=== PATIENT | male | born 1940 | race Caucasian/White ===

== ENCOUNTER 2022-05-02 12:27 | Inpatient (IN) | payer MEDICARE ==
[~2022-05-02] VITALS: Ht 167.6 cm; Wt 80.8 kg
[2022-05-02 15:17] LABS: BASOPHILS % (AUTO) 0.2 % (0.0-5.0); EOSINOPHILS % (AUTO) 0.2 % (0.0-8.0); HEMATOCRIT 39.7 % (42-54); LYMPHOCYTES % (AUTO) 12.3 % (21.0-51.0); MEAN CORPUSCULAR HEMOGLOBIN 28.9 pg (27.0-33.0); MEAN CORPUSCULAR HGB CONC 31.5 g/dL (32.0-36.0); MEAN CORPUSCULAR VOLUME 91.9 fL (79-99); MONOCYTES % (AUTO) 9.9 % (3.0-13.0); NEUTROPHILS % (AUTO) 77.1 % (40.0-77.0); PLATELET COUNT (AUTO) 96 K/uL (130-400); RED BLOOD CELL COUNT(AUTO) 4.32 MIL/uL (4.50-6.20); RED CELL DISTRIBUTION WIDTH 14.9 % (11.0-15.5)
[2022-05-02 15:31] LABS: CREATININE 2.6 mg/dL (0.5-1.5); POTASSIUM 4.2 mmol/L (3.5-5.1)
[2022-05-02 15:36] LABS: ALBUMIN 3.4 g/dL (3.5-5.0); TOTAL PROTEIN, SERUM 7.9 g/dL (6.0-8.3)
[2022-05-02] MEDS ORDERED: 0.9% NACL 500ML IV.SOLN 500 ML IV ONE (16:30)
[2022-05-02] MEDS ORDERED: 0.9%NACL 50ML 50 ML IV ONE (16:30)
[2022-05-02] MEDS ORDERED: ACETAMINOPHEN 500 MG TABLET PO ONE (16:30)
[2022-05-02] MEDS ORDERED: AZITHROMYCIN 250 MG TABLET PO ONE (16:30)
[2022-05-02] MEDS ORDERED: CEFTRIAXONE 1G VIAL IVP ONE (16:30)
[2022-05-02] MEDS ORDERED: GUAIFENESIN-DM 200/20 MG 10 ML PO ONE (16:30)
[2022-05-02] MEDS ORDERED: POTASSIUM CHLORIDE 10% ELIXIR 20 MEQ/15 ML UDCUP PO PRN (17:30)
[2022-05-02] MEDS ORDERED: DIPHENHYDRAMINE HCL 25 MG CAPSULE PO PRN (17:30)
[2022-05-02] MEDS ORDERED: DiphenhydrAMINE HCL 50 MG/ML VIAL IV PRN (17:30)
[2022-05-02] MEDS ORDERED: GUAIFENESIN-DM 200/20 MG 10 ML PO PRN (17:30)
[2022-05-02] MEDS ORDERED: ACETAMINOPHEN 325 MG TAB PO PRN ×2 (17:30)
[2022-05-02] MEDS ORDERED: DEXTROSE 50%-WATER 50 ML DISP.SYRIN IV PRN (17:30)
[2022-05-02] MEDS ORDERED: MAGNESIUM 2GM PREMIX 50ML 50 ML IV PRN (17:30)
[2022-05-02] MEDS ORDERED: POTASSIUM CHLORIDE 20MEQ/100ML 100 ML IV PRN (17:30)
[2022-05-02] MEDS ORDERED: LIDOCAINE HCL-MPF 1% 2ML VIAL IV PRN (17:30)
[2022-05-02] MEDS ORDERED: LACTULOSE 20 GM/30 ML UDCUP PO PRN (17:30)
[2022-05-02] MEDS ORDERED: NITROGLYCERIN 0.4 MG SL TAB SL PRN (17:30)
[2022-05-02] MEDS ORDERED: MAG/ALUM/SIMETH 30 ML UDCUP PO PRN (17:30)
[2022-05-02] MEDS ORDERED: ONDANSETRON 4MG INJ IV PRN (17:30)
[2022-05-02] MEDS ORDERED: GLUCAGON 1MG KIT 1 MG ML IM PRN (17:30)
[2022-05-02] MEDS ORDERED: KCL 20 MEQ ERTAB PO PRN (17:30)
[2022-05-02] MEDS: DOXYCYCLINE 100MG+NS 250ML 250 ML IV SCH (17:57)
[2022-05-02] MEDS: 0.9%NACL 1000ML 1,000 ML IV SCH ×2 (17:57→20:52)
[2022-05-02] MEDS: AZITHROMYCIN 500MG+NS 250ML 250 ML IV SCH (20:51)
[2022-05-02] MEDS: BENZONATATE 100 MG CAPSULE PO SCH (20:52)
[2022-05-02] MEDS: FAMOTIDINE 20MG TAB PO SCH (20:52)
[2022-05-02] MEDS: ATORVASTATIN 40 MG TABLET PO SCH (20:52)
[2022-05-02] MEDS ORDERED: FAMOTIDINE 20MG VIAL IV PRN (21:00)
[2022-05-02] MEDS ORDERED: HEPARIN 5,000 UNIT VIAL SQ SCH (21:00)
[2022-05-02] MEDS ORDERED: CLOP75TA32 PO (21:13)
[2022-05-02] MEDS ORDERED: CALC-877 PO (21:13)
[2022-05-02] MEDS ORDERED: GABA-529 PO (21:13)
[2022-05-02] MEDS ORDERED: ESCI20TA38 PO (21:13)
[2022-05-02] MEDS ORDERED: INSLAN SQ (21:13)
[2022-05-02] MEDS ORDERED: INSU3INS3 SQ (21:13)
[2022-05-02] MEDS ORDERED: AMLO-257 PO (21:13)
[2022-05-02 21:16] VITALS: BP 126/51
[2022-05-02] MEDS ORDERED: FURO40TA5 PO (21:17)
[2022-05-02] MEDS ORDERED: INSU100I15 SQ (21:17)
[2022-05-02] MEDS ORDERED: METO-409 PO (21:23)
[2022-05-02] MEDS ORDERED: LOSA25TA41 PO (21:23)
[2022-05-02] MEDS ORDERED: LOVA40TA2 PO (21:23)
[2022-05-02] MEDS ORDERED: WARF2.5T85 PO (21:27)
[2022-05-02] MEDS ORDERED: WARF-57 PO (21:27)
[2022-05-02] MEDS ORDERED: POLY17PO4 PO (21:27)
[2022-05-02] MEDS: INSULIN HUMULIN R 100 UNIT/ML 3ML SQ SCH (23:15)
[2022-05-03] VITALS: BP 122/71
[2022-05-03 04:00] VITALS: BP 137/66
[2022-05-03] MEDS: DOXYCYCLINE 100MG+NS 250ML 250 ML IV SCH ×2 (04:49→20:44)
[2022-05-03 05:04] LABS: BASOPHILS % (AUTO) 0.1 % (0.0-5.0); EOSINOPHILS % (AUTO) 0.9 % (0.0-8.0); HEMATOCRIT 34.6 % (42-54); LYMPHOCYTES % (AUTO) 11.4 % (21.0-51.0); MEAN CORPUSCULAR HEMOGLOBIN 28.8 pg (27.0-33.0); MEAN CORPUSCULAR HGB CONC 30.9 g/dL (32.0-36.0); MONOCYTES % (AUTO) 11.6 % (3.0-13.0); NEUTROPHILS % (AUTO) 75.7 % (40.0-77.0); PLATELET COUNT (AUTO) 95 K/uL (130-400); RED BLOOD CELL COUNT(AUTO) 3.72 MIL/uL (4.50-6.20)
[2022-05-03] MEDS: INSULIN HUMULIN R 100 UNIT/ML 3ML SQ SCH ×4 (05:50→21:00)
[2022-05-03 05:57] LABS: CREATININE 2.3 mg/dL (0.5-1.5); MAGNESIUM 2.1 mg/dL (1.80-2.40); PHOSPHORUS 3.2 mg/dL (2.5-4.9)
[2022-05-03 08:00] VITALS: BP 154/68
[2022-05-03] MEDS ORDERED: WARFARIN SODIUM 2.5 MG TAB PO SCH (09:00)
[2022-05-03] MEDS: INSULIN GLARGINE 100 UNITS/ML 10 ML VIAL SQ SCH (09:00)
[2022-05-03] MEDS: ASPIRIN 81 MG EC TAB PO SCH (09:07)
[2022-05-03] MEDS: GABAPENTIN 100 MG CAPSULE PO SCH (09:08)
[2022-05-03] MEDS: LOSARTAN 25 MG TABLET PO SCH ×2 (09:08→20:41)
[2022-05-03] MEDS: FUROSEMIDE 40 MG TABLET PO SCH (09:08)
[2022-05-03] MEDS: METOPROLOL SUCCINATE 50 MG TAB.SR.24H PO SCH ×2 (09:08→20:42)
[2022-05-03] MEDS: CA 600MG+VIT D 400 UNIT TAB 1 TAB TABLET PO SCH (09:08)
[2022-05-03] MEDS: AMLODIPINE 5 MG TAB PO SCH (09:09)
[2022-05-03] MEDS: DEXAMETHASONE 4 MG TAB PO SCH (09:09)
[2022-05-03] MEDS: CLOPIDOGREL 75MG TAB PO SCH (09:09)
[2022-05-03] MEDS: CITALOPRAM 20 MG TABLET PO SCH (09:10)
[2022-05-03] MEDS: BENZONATATE 100 MG CAPSULE PO SCH ×3 (09:11→20:42)
[2022-05-03 09:27] LABS: INR 1.88 (0.85-1.15); PROTHROMBIN TIME 19.8 SEC (9.6-11.6)
[2022-05-03 12:00] VITALS: BP 147/59
[2022-05-03] MEDS: PHARMACY COMMUNICATION MISC SCH ×7 (13:00→19:00)
[2022-05-03] MEDS ORDERED: HEPARIN 5,000 UNIT VIAL SQ SCH (14:00)
[2022-05-03 16:00] VITALS: BP 146/67
[2022-05-03] MEDS ORDERED: INSULIN LISPRO 100 UNIT/ML 3ML SQ SCH (17:00)
[2022-05-03 20:00] VITALS: BP 154/67
[2022-05-03] MEDS: ATORVASTATIN 40 MG TABLET PO SCH (20:41)
[2022-05-03] MEDS: FAMOTIDINE 20MG TAB PO SCH (20:42)
[2022-05-03] MEDS ORDERED: SIMVASTATIN 20 MG TABLET PO SCH (21:00)
[2022-05-03] MEDS ORDERED: INSULIN GLARGINE 100 UNITS/ML 10 ML VIAL SQ SCH (21:00)
[2022-05-03] MEDS: AZITHROMYCIN 500MG+NS 250ML 250 ML IV SCH (23:51)
[2022-05-04] VITALS: BP 132/63
[2022-05-04 04:00] VITALS: BP 121/55
[2022-05-04 05:12] LABS: HEMATOCRIT 35.2 % (42-54); LYMPHOCYTES % (AUTO) 9.1 % (21.0-51.0); MEAN CORPUSCULAR HEMOGLOBIN 28.5 pg (27.0-33.0); MEAN CORPUSCULAR VOLUME 91.9 fL (79-99); MONOCYTES % (AUTO) 4.6 % (3.0-13.0); NEUTROPHILS % (AUTO) 85.8 % (40.0-77.0); PLATELET COUNT (AUTO) 106 K/uL (130-400); RED BLOOD CELL COUNT(AUTO) 3.83 MIL/uL (4.50-6.20); RED CELL DISTRIBUTION WIDTH 14.7 % (11.0-15.5); WHITE BLOOD COUNT (AUTO) 4.4 K/uL (4.8-10.8)
[2022-05-04 05:19] LABS: INR 1.69 (0.85-1.15); PROTHROMBIN TIME 17.9 SEC (9.6-11.6)
[2022-05-04 05:30] LABS: ALBUMIN 2.7 g/dL (3.5-5.0); CREATININE 2.5 mg/dL (0.5-1.5); CRP QUANTITATIVE 124.1 mg/L (0.00-9.0); MAGNESIUM 2.1 mg/dL (1.80-2.40); PHOSPHORUS 3.8 mg/dL (2.5-4.9); POTASSIUM 4.4 mmol/L (3.5-5.1); TOTAL PROTEIN, SERUM 6.6 g/dL (6.0-8.3); URIC ACID 8.5 mg/dL (2.6-7.2)
[2022-05-04] MEDS: INSULIN HUMULIN R 100 UNIT/ML 3ML SQ SCH (06:38)
[2022-05-04 08:00] VITALS: BP 121/68
[2022-05-04] MEDS ORDERED: Vitamin B Complex/Vit C/Folic Acid PO SCH (09:00)
[2022-05-04] MEDS: DOXYCYCLINE 100MG+NS 250ML 250 ML IV SCH (09:00)
[2022-05-04] MEDS: INSULIN GLARGINE 100 UNITS/ML 10 ML VIAL SQ SCH (09:00)
[2022-05-04] MEDS: BENZONATATE 100 MG CAPSULE PO SCH (10:01)
[2022-05-04] MEDS: CITALOPRAM 20 MG TABLET PO SCH (10:01)
[2022-05-04] MEDS: CLOPIDOGREL 75MG TAB PO SCH (10:01)
[2022-05-04] MEDS: LOSARTAN 25 MG TABLET PO SCH (10:01)
[2022-05-04] MEDS: DEXAMETHASONE 4 MG TAB PO SCH (10:02)
[2022-05-04] MEDS: METOPROLOL SUCCINATE 50 MG TAB.SR.24H PO SCH (10:02)
[2022-05-04] MEDS: AMLODIPINE 5 MG TAB PO SCH (10:02)
[2022-05-04] MEDS: ASPIRIN 81 MG EC TAB PO SCH (10:03)
[2022-05-04] MEDS: FUROSEMIDE 40 MG TABLET PO SCH (10:03)
[2022-05-04] MEDS: CA 600MG+VIT D 400 UNIT TAB 1 TAB TABLET PO SCH (10:03)
[2022-05-04] MEDS: GABAPENTIN 100 MG CAPSULE PO SCH (10:03)
[2022-05-04] MEDS ORDERED: DOXY100C5 PO (10:08)
[2022-05-04] MEDS ORDERED: AZIT500T4 PO (10:08)
[2022-05-04] MEDS ORDERED: DEXA4 PO (10:08)
[2022-05-04] MEDS ORDERED: WARFARIN SODIUM 5 MG TAB PO SCH (16:00)
[2022-05-05] MEDS ORDERED: WARFARIN SODIUM 2.5 MG TAB PO SCH (16:00)
== END 2022-05-04 11:59 | disposition home or self-care (01) | DRG 177 ==
LOC: EDH 12:27 → EDHIP 17:04 → 4CH 19:00
PROVIDERS: ADMIT Internal Medicine; ATTEND Internal Medicine
DX: U07.1 COVID-19 (principal); I50.43 Acute on chronic combined systolic (congestive) and diastolic (congestive) heart failure; J12.82 Pneumonia due to coronavirus disease 2019; N17.9 Acute kidney failure, unspecified; E44.1 Mild protein-calorie malnutrition; I13.0 Hypertensive heart and chronic kidney disease with heart failure and stage 1 through stage 4 chronic kidney disease, or unspecified chronic kidney disease; D68.59 Other primary thrombophilia; E11.42 Type 2 diabetes mellitus with diabetic polyneuropathy; E86.0 Dehydration; N18.9 Chronic kidney disease, unspecified; E11.22 Type 2 diabetes mellitus with diabetic chronic kidney disease; D64.9 Anemia, unspecified; E11.51 Type 2 diabetes mellitus with diabetic peripheral angiopathy without gangrene; E11.65 Type 2 diabetes mellitus with hyperglycemia; E78.00 Pure hypercholesterolemia, unspecified; I25.10 Atherosclerotic heart disease of native coronary artery without angina pectoris; I35.9 Nonrheumatic aortic valve disorder, unspecified; Z68.28 Body mass index [BMI] 28.0-28.9, adult; Z95.2 Presence of prosthetic heart valve; Z96.651 Presence of right artificial knee joint; Z95.5 Presence of coronary angioplasty implant and graft; Z95.810 Presence of automatic (implantable) cardiac defibrillator
CPT/HCPCS: 36415; 71045; 76770; 80048; 80053; 82948; 83735; 83880; 84100; 84145; 84550; 85025; 85610; 86140; 87071; 87205; 87635; 87804; 94760; A4606; C9803; G0378; J0456; J0696; J1644; J1815; J3490; J7030; J7040; J8540